=== PATIENT | male | born 2000 | race Caucasian/White ===

== ENCOUNTER 2023-03-24 17:16 | Emergency (ER) | payer OTHER, SELFPAY ==
[2023-03-24 20:40] VITALS: BP 127/61; PULSE 86; RESP 16; TEMP 37.3; O2SAT 100; BMI 21.3
--- NOTE | 2023-03-24 20:43 | ED_ITS ---
HPI - URI/Sore Throat General Chief Complaint: Headache <MARIELENA Landrum - Last Filed: 03/24/23 20:44> Stated Complaint: Respiratory infection? <MARIELENA Landrum - Last Filed: 03/24/23 20:44> Time Seen by Provider: 03/24/23 21:48 <MARIELENA Landrum - Last Filed: 03/24/23 20:44> Source: patient and RN notes reviewed <Tylor De La Cruz - Last Filed: 03/24/23 22:00> Mode of arrival: ambulatory <Tylor De La Cruz - Last Filed: 03/24/23 22:00> Limitations: no limitations <Tylor De La Cruz - Last Filed: 03/24/23 22:00> History of Present Illness HPI Narrative: 23-year-old male with past medical history significant for seasonal allergies presents for evaluation of cough, congestion, fatigue and left ear pain. he reports the symptoms started a few days ago denies any fevers or chills. denies shortness of breath he reports that his symptoms reminded when he was diagnosed with upper respiratory infection a few months ago. he is a nonsmoker <Tylor De La Cruz - Last Filed: 03/24/23 22:00> Related Data Home Medications: Previous Rx's Medication Instructions Recorded cetirizine 10 mg tablet (Zyrtec) 10 mg PO DAILY #30 tabs 10/17/22 fluticasone propionate 50 1 spray intranasal DAILY 30 days 11/18/22 mcg/actuation nasal #15.8 mL spray,suspension (Children's Flonase Allergy Relief) azithromycin 250 mg tablet See Rx Instructions PO .COMPLEX #6 01/27/23 tabs azithromycin 250 mg tablet See Rx Instructions PO .COMPLEX #6 03/24/23 tabs <MARIELENA Landrum - Last Filed: 03/24/23 20:44> Allergies/Adverse Reactions: Allergies Allergy/AdvReac Type Severity Reaction Status Date / Time No Known Allergies Allergy Verified 01/27/23 09:40 <MARIELENA Landrum Last Filed: 03/24/23 20:44> Review of Systems Constitutional: Constitutional: Denies body ache(s), Denies chills, Reports fatigue and Denies fever(s) <Tylor De La Cruz - Last Filed: 03/24/23 22:00> Eyes: Eyes: Denies blurry vision <Tylor De La Cruz - Last Filed: 03/24/23 22:00> ENT: Reports otalgia, Reports nasal congestion and Reports sinus pressure <Tylor De La Cruz - Last Filed: 03/24/23 22:00> Cardiovascular: Cardiovascular: Denies chest pain and Denies dyspnea <Tylorgeovani Gutierrezy - Last Filed: 03/24/23 22:00> Respiratory: Respiratory: Reports chest congestion, Reports cough and Denies dyspnea <Tylorgeovani De La Cruz - Last Filed: 03/24/23 22:00> Gastrointestinal: Gastrointestinal: Denies abdominal pain, Denies nausea and Denies vomiting <Tylor De La Cruz Last Filed: 03/24/23 22:00> Integumentary/Breasts: Skin/Breast: Denies rash <Tylor De La Cruz - Last Filed: 03/24/23 22:00> Endocrine: Endocrine: Reports fatigue <Tylor De La Cruz - Last Filed: 03/24/23 22:00> PMF Family History Family History: Family History Mother No problems noted. <MARIELENA Landrum - Last Filed: 03/24/23 20:44> Social History Social History: Social History Household Members: Family Patient Tobacco Use Status: Never used Tobacco Advance Directives: No Advance Directives Information Provided: No <MARIELENA Landrum - Last Filed: 03/24/23 20:44> Physical Exam Vital Signs: Vital Signs: Last Vital Signs Temp 99.2 F 03/24/23 20:40 Pulse 86 03/24/23 20:40 Resp 16 03/24/23 20:40 BP 127/61 03/24/23 20:40 Pulse Ox 100 03/24/23 20:40 O2 Del Method Room Air 03/24/23 20:40 BMI result Body Mass Index 21.3 <MARIELENA Landrum - Last Filed: 03/24/23 20:44> Vital Signs: Last Vital Signs Temp 99.2 F 03/24/23 20:40 Pulse 86 03/24/23 20:40 Resp 16 03/24/23 20:40 BP 127/61 03/24/23 20:40 Pulse Ox 100 03/24/23 20:40 O2 Del Method Room Air 03/24/23 20:40 BMI result Body Mass Index 21.3 <Tylor Abiodun - Last Filed: 03/24/23 22:00> Const: General: healthy appearing, comfortable, no acute distress, alert and awake < - Last Filed: 03/24/23 22:00> Nutritional Appearance: well nourished < - Last Filed: 03/24/23 22:00> Orientation/consciousness: patient oriented x3 <Tylor Last Filed: 03/24/23 22:00> HEENT: Head: Yes normocephalic and Yes atraumatic <Tylor - Last Filed: 03/24/23 22:00> Ears: external ears normal, TM's normal bilaterally and EAC's normal <Tylor - Last Filed: 03/24/23 22:00> Throat: Yes posterior oropharynx normal < Last Filed: 03/24/23 22:00> Eyes: Eyelids: Yes eyelids normal <Tylor Last Filed: 03/24/23 22:00> Conjunctivae: conjunctivae normal < Last Filed: 03/24/23 22:00> Pupils: Equal, round and reactive pupils present < Last Filed: 03/24/23 22:00> EOM: EOMs intact bilaterally < - Last Filed: 03/24/23 22:00> Neck: Neck: Yes full ROM < - Last Filed: 03/24/23 22:00> Resp: Effort & Inspection: normal respiratory effort, able to speak in comple te sentences, no audible wheezes and not labored <Tylor O - Last Filed: 03/24/23 22:00> Auscultation: clear to auscultation bilaterally <Tylor OMikeAbbeville - Last Filed: 03/24/23 22:00> Cardio: Rate: regular rate <Tylor DomitilaDemetra - Last Filed: 03/24/23 22:00> Rhythm: regular rhythm <Tylor Gutierrezy - Last Filed: 03/24/23 22:00> GI: Inspection: No distended <Tylor OAbbeville - Last Filed: 03/24/23 22:00> Palpation (GI): Soft to palpation, not firm, nontender, no guarding and not rigid <Tylor Gutierrezy - Last Filed: 03/24/23 22:00> Auscultation: normoactive bowel sounds <Tylor RameshOweny - Last Filed: 22:00> Skin: General skin exam: no rashes or lesions noted and elasticity normal <Tylorgeovani Gutierrezy - Last Filed: 03/24/23 22:00> Neuro: General: patient oriented x3 <Tylorgeovani Gutierrezy - Last Filed: 03/24/23 22:00> Cranial nerves: Yes Equal, round and reactive pupils present and Yes Bilaterally intact EOM present <Tylor Gutierrezy - Last Filed: 03/24/23 22:00> Cognition (Neuro): normal cognition <Tylor De La Cruz - Last Filed: 03/24/23 22:00> Course Course Course Narrative: RME: 23-year-old male no significant past medical history presenting to the ED complaining of sore throat, ear pain, low back pain, mild headache x few days COVID/flu and rapid strep ordered Full HPI, ROS and PE to be performed by primary ED provider. <MARIELENA Landrum - Last Filed: 03/24/23 20:44> Medical Decision Making Medical Decision Making MDM Narrative: healthy 23-year-old male presents for evaluation upper respiratory symptoms. Viral panel negative. Awaiting strep test that was ordered in triage. <Tylor De La Cruz - Last Filed: 03/24/23 22:00> Differential Diagnosis Upper respiratory infection Viral syndrome Sinusitis Otitis media <Tylor De La Cruz - Last Filed: 03/24/23 22:00> Lab Data Labs: Lab Results 03/24/23 03/24/23 Range/Units 20:59 20:59 COVID-19 (NARCISA) Negative (Negative) COVID-19 Clin Com See Note Influenza Type A (JOHNNIE) Negative (Negative) Influenza Type B (JOHNNIE) Negative (Negative) Influenza A & B Note See Note <MARIELENA Landrum - Last Filed: 03/24/23 20:44> Lab Results 03/24/23 03/24/23 Range/Units 20:59 20:59 COVID-19 (NARCISA) Negative (Negative) COVID-19 Clin Com See Note Influenza Type A (JOHNNIE) Negative (Negative) Influenza Type B (JOHNNIE) Negative (Negative) Influenza A & B Note See Note <Tylor De La Cruz - Last Filed: 03/24/23 22:00> Discharge Plan Discharge Clinical Impression: Upper respiratory tract infection <MARIELENA Landrum - Last Filed: 03/24/23 20:44> Patient Disposition: Home, Self-Care <MARIELENA Landrum - Last Filed: 03/24/23 20:44> Instructions: Upper Respiratory Infection (ED) <MARIELENA Landrum - Last Filed: 03/24/23 20:44> Additional Instructions: taking azithromycin as prescribed take your Zyrtec daily as well follow-up with her primary doctor <MARIELENA Landrum - Last Filed: 03/24/23 20:44> Prescriptions: New azithromycin 250 mg tablet See Rx Instructions .ROUTE .COMPLEX Qty: 6 0RF Rx Instructions: For 250 mg dose pack: take 500 mg today (day 1), then 250 mg for 4 days (days 2-5) No Action cetirizine [Zyrtec] 10 mg tablet 10 mg PO DAILY Qty: 30 5RF fluticasone propionate [Children's Flonase Allergy Rlf] 50 mcg/actuation spray,suspension 1 spray intranasal DAILY 30 Days Qty: 15.8 2RF Rx Instructions: administer into each nostril azithromycin 250 mg tablet See Rx Instructions PO .COMPLEX Qty: 6 0RF Rx Instructions: For 250 mg dose pack: take 500 mg today (day 1), then 250 mg for 4 days (days 2-5) PO <MARIELENA Landrum - Last Filed: 03/24/23 20:44> Stand Alone Forms: Work/School Release <MARIELENA Landrum - Last Filed: 03/24/23 20:44> Interventions: LWBS Worksheet Last Done: 03/24/23 19:29 <MARIELENA Landrum - Last Filed: 03/24/23 20:44>
[2023-03-24 21:19] LABS: COVID-19 Test Negative (Negative); IDNOW Serial# 08D9AD1C; IDNOW Serial# BCCEAD1C; Influenza A Negative (Negative); Influenza B2 Negative (Negative)
[2023-03-24 22:01] LABS: IDNOW Serial# 08D9AD1C; Strep A Nucleic Acid Negative (Negative)
== END 2023-03-24 22:18 | disposition home or self-care (01) ==
PROVIDERS: Physician Assistant; Emergency Provider Internal Medicine; PCP Physician Assistant
DX: J06.9 Acute upper respiratory infection, unspecified (principal); Z20.822 Contact with and (suspected) exposure to COVID-19; Z79.899 Other long term (current) drug therapy
CPT/HCPCS: 87502; 87635; 87651; 99282; 99283

== ENCOUNTER 2023-08-26 15:45 | Outpatient (AMB) | payer OTHER, SELFPAY ==
[2023-08-26 15:55] VITALS: BP 110/60; PULSE 80; RESP 17; O2SAT 96; BMI 26.8
--- NOTE | 2023-08-26 15:55 | MHC.PC.OV ---
Vital Signs 08/26/23 15:55 Height 5 ft 6.54 in Weight 169 lb BMI 26.8 BP 110/60 Blood Pressure Location Lt brachial Position Sitting Respiration 17 Pulse 80 Pulse Source Pulse Oximeter Pulse Oximetry (%) 96 Oxygen Delivery Method Room Air Intake Visit Reasons: New patient-Transfer from [address] Allergies No Known Allergies Allergy (Verified 08/26/23 16:12) Medication List - Last Reconciled 08/26/23 by Amos Aguilar PA-C cetirizine (Zyrtec) 10 mg PO DAILY Tobacco use date assessed: 08/26/23 Dental Screening Dental Screen Date: 08/26/23 Did you have a dental visit in the last 12 months?: Yes Did you have a dental problem in the last 6 months where you did not have access to dental care?: No Was dental information given to patient?: Patient has dentist HPI New patient-Transfer from [address] HPI Details Patient is a 23-year-old male here today for a new patient annual physical. Patient's past medical history significant for allergic rhinitis and ADHD. Allergic rhinitis: Is seasonal and continues to use Zyrtec and Flonase with good effect. .. ADD: Was diagnosed with ADD as a child and was on medication. Has taken of self medication as of 2020 and doing well. 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 Vaccines: Up-to-date with COVID vaccine, flu vaccine [facility] Family History Mother No problems noted. 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 1. Little interest or pleasure in doing things: not at all 2. Feeling down, depressed, or hopeless: not at all 3. Trouble falling or staying asleep, or sleeping too much: not at all 4. Feeling tired or having little energy: not at all 5. Poor appetite or overeating: not at all 6. Feeling bad about yourself - or that you are a failure or have let yourself or your family down: not at all 7. Trouble concentrating on things, such as reading the newspaper or watching television: not at all 8. Moving or speaking so slowly that other people could have noticed. Or the opposite - being so fidgety or restless that you have been moving around a lot more than usual: not at all 9. Thoughts that you would be better off or of hurting yourself in some way: not at all Total score: 0 Depression Screening Interpretation: Negative Depression Screening Done: Yes [id number] - PHQ-9 Billing: Yes Source: Developed by Drs. Humphrey Alfredo, Hanna Hernandez, Carlos Manuel Cornejo and colleagues, with an educational dorinda from [employer]. Thrive Questionnaire Date Thrive assessed: 08/26/23 I am a: Patient What is your living situation today?: I have a steady place to live Within the past 12 months, did the food you bought not last and you didn't have the money to get more?: Never true Within the past 12 months, did you worry whether your food would run out before you got money to buy more?: Never true Do you have trouble paying for medicines?: No Do you have trouble getting transportation to medical appointments?: No Do you have trouble paying your heating and electricity bill?: No Do you have trouble taking care of your child, family member or friend?: No Do you have trouble with day-to-day activities such as bathing, preparing meals, shopping, managing finances, etc.?: No Are you currently unemployed and looking for a job?: No Are you interested in more education?: No Please select the resources that you would like help with: None Currently or been in a relationship where the following occur: no concerns reported AUDIT C Alcohol Use Questionnaire (AUDIT-C) 1. How often do you have a drink containing alcohol?: Never 3. How often do you have six or more drinks on one occasion?: Never Total Score: 0 JOSH-7 AMB Questionnaire JOSH-7 Date JOSH - 7 assessed: 10/11/23 Feeling nervous, anxious, or on edge: 0 = Not at all Not being able to stop or control worryin = Not at all Worrying too much about different things: 0 = Not at all Trouble relaxin = Not at all Being so restless that it is hard to sit still: 0 = Not at all Becoming easily annoyed or irritable: 0 = Not at all Feeling afraid as if something awful might happen: 0 = Not at all Total JOSH-7 score (0-4 normal; 5-9 mild; 10-14 moderate; 15-21 severe): 0 Source: Developed by Drs. Humphrey Alfredo, Hanna Hernandez, Carlos Manuel Cornejo and colleagues, with an educational dorinda from [employer]. JOSH-7 Assessment Billing JOSH-7 Assessment Tool: JOSH-7 Assessment 73709 Review of Systems Const Denies body aches, Denies chills, Denies excessive sweating, Denies fatigue, Denies fever(s) and Denies headache(s) Eyes Denies blurry vision ENT Denies dysphagia, Denies vertigo, Denies dizziness, Denies headache(s), Denies hearing loss and Denies tinnitus Card Denies chest pain, Denies chest pain with activity, Denies syncope, Denies irregular heart rhythm and Denies dyspnea Resp Denies chest congestion, Denies cough, Denies hemoptysis, Denies dyspnea and Denies wheezing GI Denies abdominal pain, Denies melena, Denies hematochezia, Denies coffee ground emesis, Denies dysphagia, Denies diarrhea, Denies nausea and Denies vomiting Denies difficulty urinating, Denies dysuria, Denies urinary frequency, Denies urinary hesitancy and Denies urinary urgency Musc Denies arthralgias, Denies limited range of motion, Denies muscle cramps and Denies muscle weakness Skin/Breast Denies rash and Denies skin ulcer Neuro Denies Abnormal speech present, Denies confusion, Denies vertigo, Denies dizziness, Denies syncope, Denies headache(s), Denies memory loss and Denies seizure-like activity Psych Denies anxiety, Denies confusion, Denies depression, Denies memory loss, Denies panic attacks and Denies paranoia Endo Denies excessive sweating, Denies fatigue, Denies flushing, Denies polydipsia and Denies polyuria Aller/Immun Denies wheezing Physical exam (Primary Care) Vital Signs: Last Vital Signs Pulse 80 08/26/23 15:55 Resp 17 08/26/23 15:55 BP 110/60 08/26/23 15:55 Pulse Ox 96 08/26/23 15:55 Oxygen Delivery Method Room Air 08/26/23 15:55 BMI result Body Mass Index 26.8 Tobacco/Smoking Status: Tobacco use Status Tobacco use date assessed 08/26/23 08/26/23 16:07 Patient Tobacco Use Status Never used Tobacco 08/26/23 16:07 e-Cigarette/Vaping Use Never Used 08/26/23 16:07 PHQ-9: PHQ-9 Score PHQ-9: Total score 0 08/26/23 16:07 Depression Screening Interpretation: Negative Thrive Assessment: Date of Thrive Assessment Date Thrive assessed 08/26/23 08/26/23 16:07 Currently or been in a relationship where the following occur: no concerns reported Const General: cooperative, comfortable, no acute distress, alert and awake; No confusion Orientation/consciousness: oriented to person, oriented to place, patient oriented x3 and No confusion HENMT Head: Yes normocephalic Ears: external ears normal and TM's normal bilaterally Face and sinus: No sinus tenderness Mouth: Normal oral and palatal mucosa present and tongue normal Teeth and gingiva: dentition normal and gingiva normal Throat: Yes posterior oropharynx normal, Yes tonsils normal and Yes uvula midline Eyes Conjunctivae: conjunctivae normal Sclerae: sclerae normal Pupils: Equal, round and reactive pupils present EOM: EOMs intact bilaterally Direct Ophthalmoscopy: No no photophobia Neck Neck: Yes no lymphadenopathy, No tender and Yes no JVD Thyroid: Thyroid normal Carotids: no bruits Chest Chest palpation & inspection: no tenderness Resp Effort & Inspection: normal respiratory effort, no audible wheezes, not labored and no stridor Auscultation: no crackles, no rales, no rhonchi and no wheezes Cardio Jugular venous distension: no JVD Rate: regular rate, not bradycardic and not tachycardic Rhythm: regular rhythm Bruits: no carotid bruits Peripheral pulses: Peripheral pulses 2+ throughout GI Inspection: Yes normal to inspection, No abdominal wall ecchymosis and No visible herniation Palpation (GI): Soft to palpation, nontender, no guarding, not rigid and No hepatosplenomegaly present Auscultation: normoactive bowel sounds General: Yes no CVA tenderness Back/Spine/Pelvis Back: no CVA tenderness and No back tenderness Cervical Spine: cervical ROM normal Thoracic/Lumbar Spine: thoracic and lumbar spine normal to inspection, straight leg raise negative bilaterally, No thoraco-lumbar ROM limited and No lumbar spinal tenderness Skin Lesions: no lesions Rashes: no rashes Wounds: no wounds Neuro General: oriented to person, oriented to place, patient oriented x3, CN's II-XI intact bilaterally and No confusion Cranial nerves: Yes Equal, round and reactive pupils present and Yes Normal accommodation reflex present Cognition (Neuro): normal cognition Speech: No Abnormal speech present Gait exam (Neuro): Normal gait present Motor exam (neuro): 5/5 motor strength present throughout Extrem Right upper extremity: full ROM; no cyanosis Left upper extremity: full ROM; no cyanosis Right lower extremity: no edema Left lower extremity: no edema Psych Appearance: grossly normal Mental Status: mental status grossly normal Affect: normal affect Attitude: cooperative Thought process: Normal thought process present Office Procedures Flu Questionnaire Does the patient have a severe egg allergy?: No Does the patient have severe life threatening allergies?: No Does the patient have a fever or illness today?: No Has the patient ever had Guillain-[place] Syndrome?: No Has the patient ever had any past reaction to a flu shot?: No Immunizations flu vacc [id number] 6mos up(PF) 60 mcg(15 mcgx4)/0.5 mL IM syringe Performing Provider: Amos Aguilar PA-C [facility] Administered by: CHACHA Barnett on 08/26/23 16:08 Dose Route Admin Location Dispensed Lot Number Expiration Date NDC Application Systems Engineer 0.5 mL IM Left Deltoid 0.5 mL [id number] 05/15/24 92882-083-89 [employer] VIS Given Date VIS Provided VIS Publication Date 08/26/23 Single Vaccine 21 Eligibility Eligibility Date Funding Source Not VFC Eligible 08/26/23 Private Assessment and Plan Assessment & Plan (1) Annual physical exam: Code(s): Z00.00 - Encounter for general adult medical examination without abnormal findings (2) Non-seasonal allergic rhinitis: Comment: Well controlled on flonase alone. Code(s): J30.89 - Other allergic rhinitis Qualifiers: Allergic rhinitis trigger: pollen Qualified Code(s): J30.1 - Allergic rhinitis due to pollen Plan: Uses Zyrtec and Flonase with good effect on his allergies. (3) Screening for diabetes mellitus (DM): Code(s): Z13.1 - Encounter for screening for diabetes mellitus (4) ADHD, predominantly inattentive type: Comment: no longer on medication as of 11/2020 Code(s): F90.0 - Attention-deficit hyperactivity disorder, predominantly inattentive type Plan: Was diagnosed with ADD in his childhood. Was on Vyvanse in the past though is been off medication as a 2020. 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 Orders: Orders Influenza [id number] Immunization Today Z23 - Encounter for immunization Comprehensive [place]. Panel Fast Today Z13.1 - Encounter for screening for diabetes mellitus Medications: New fluticasone propionate 50 mcg/actuation (Flonase Allergy Relief) administer into each nostril 1 spray intranasal BID 16 grams 6RF 30 days J30.1 - Allergic rhinitis due to pollen Refilled cetirizine (Zyrtec) 10 mg PO DAILY 30 tabs 5RF Coding Level of Care Code New Pt Prev Care [id number]([id number] Diagnoses Annual physical exam Z00.00 Non-seasonal allergic rhinitis due to pollen J30.1 Allergic rhinitis trigger: pollen Screening for diabetes mellitus (DM) Z13.1 ADHD, predominantly inattentive type F90.0 Additional Codes JOSH-7 Assessment Billing - JOSH-7 Assessment Tool: JOSH-7 Assessment [id number] ([id number])
== END 2023-08-26 16:22 | disposition home or self-care (01) ==
PROVIDERS: PCP Physician Assistant; Visit Provider Physician Assistant
DX: Z00.00 Encounter for general adult medical examination without abnormal findings (principal); J30.1 Allergic rhinitis due to pollen; Z13.1 Encounter for screening for diabetes mellitus; F90.0 Attention-deficit hyperactivity disorder, predominantly inattentive type; Z23 Encounter for immunization
CPT/HCPCS: 90471; 90686; 99385

== ENCOUNTER 2023-09-14 15:55 | Emergency (ER) | payer OTHER, SELFPAY ==
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
[2023-09-14 15:57] VITALS: BP 140/77; PULSE 72; RESP 20; TEMP 36.7; O2SAT 98; BMI 25.7
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
[2023-09-14] MEDS: Acetaminophen 325 MG TABLET 650 MG PO (19:13)
[2023-09-14] MEDS: Lidocaine HCl 1 % MPF 5 ML VIAL INFILTRATI (19:57)
[2023-09-14] MEDS: Diphth,Pertus(ACell),Tet Adult 0.5 ML SYRINGE IM (20:10)
--- NOTE | 2023-09-14 20:18 | PC.NURSE ---
pt medicated per MAR- TdaP updated, lido 1% at bedside with lac setup
== END 2023-09-14 21:37 | disposition home or self-care (01) ==
PROVIDERS: Emergency Provider Internal Medicine; PCP Physician Assistant
DX: S01.511A Laceration without foreign body of lip, initial encounter (principal); S02.5XXA Fracture of tooth (traumatic), initial encounter for closed fracture; S00.81XA Abrasion of other part of head, initial encounter; R51.9 Headache, unspecified; W01.0XXA Fall on same level from slipping, tripping and stumbling without subsequent striking against object, initial encounter; Y93.9 Activity, unspecified; Y92.9 Unspecified place or not applicable; Y99.9 Unspecified external cause status; Z79.899 Other long term (current) drug therapy; Z23 Encounter for immunization
CPT/HCPCS: 12013; 70450; 70486; 90471; 90715; 99284

== ENCOUNTER 2025-07-03 00:32 | Emergency (ER) | payer OTHER, SELFPAY ==
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
[2025-07-03 00:42] VITALS: BP 136/76; PULSE 57; RESP 16; TEMP 36.9; O2SAT 98; BMI 23.0
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
[2025-07-03 03:42] VITALS: BP 136/76; PULSE 57; RESP 16; TEMP 36.9; O2SAT 98
== END 2025-07-03 03:42 | disposition home or self-care (01) ==
PROVIDERS: Emergency Provider Emergency Medicine
DX: S06.0X0A Concussion without loss of consciousness, initial encounter (principal); Y04.0XXA Assault by unarmed brawl or fight, initial encounter; Y93.9 Activity, unspecified; Y92.89 Other specified places as the place of occurrence of the external cause; Y99.0 Civilian activity done for income or pay; R51.9 Headache, unspecified
CPT/HCPCS: 70450; 72125; 99282; 99284

== ENCOUNTER → 2025-07-03 02:05 | Outpatient (BNV) | payer OTHER, SELFPAY | PROVIDERS: Emergency Provider Emergency Medicine; Visit Provider Radiology Diagnostic Radiology | DX: M54.2 Cervicalgia (principal); S00.83XA Contusion of other part of head, initial encounter | CPT/HCPCS: 70450; 72125 ==